=== PATIENT | female | born 1950 | race Caucasian/White ===

== ENCOUNTER 2022-01-24 13:55 | Outpatient (CLI) | payer OTHER, SELFPAY ==
--- NOTE | 2022-01-24 14:30 | MR_ITS ---
[address] [address] Phone:?[phone] Fax:?[phone] Referring Physician Information: Rory Hughes M.D. [address] [place] [address] Phone:?[phone] Fax:?[phone] Patient:?Malu Charles D.O.B:?1950 Sex:?Female Phone:?[phone] [facility] MRN:?[id number] Exam Date:?01/24/2022 ? EXAM: MRI of the RIGHT SHOULDER, without contrast CLINICAL INFORMATION: Female, 71 years old, with right shoulder pain. INDICATION: Evaluate for rotator cuff tear. PRIOR SURGERY: None reported. PLAIN FILMS: None available. COMPARISONS: No prior MRIs available. TECHNICAL INFORMATION: Using a 1.5T MR scanner and a localizing surface coil: coronal obliques: PD, T2FS sagittal obliques: T2, PDFS axials: PD, PDFS SEDATION: None CONTRAST: None FINDINGS: Bones: Proximal humerus: No fracture or marrow edema/pathology. No humeral Hill-Sachs or reverse Hill-Sachs lesion/impaction or contusion. Glenoid: No fracture or marrow edema/pathology. No osseous Bankart lesion. Rotator cuff and muscles/tendons: Supraspinatus: Full width, essentially full-thickness tear of supraspinatus, tendon retraction to the mid humeral head (coronal STIR series 4 image 13). Grade 2 muscle atrophy. Infraspinatus: Mild-moderate infraspinatus tendinopathy with partial-thickness articular surface tearing over an area measuring 2.0 cm mediolateral by 1.7 cm anteroposterior and involving approximately 50% of the tendon thickness (sagittal T2 series 8 image 6 and coronal STIR series 4 image 15). The torn deep fibers are retracted to the mid humeral head. Grade 1 muscle atrophy. Teres minor: No tendinopathy, tear or atrophy. Subscapularis: Mild to moderate tendinopathy of the superior distal subscapularis with partial-thickness articular surface tearing over an area measuring 1.8 x 1.9 cm and involving approximately one third of the tendon thickness (sagittal T2 series 8 image 12 and axial PD series 3 image 16). No full-thickness tear, retraction, or muscle atrophy. Deltoid: No strain or atrophy. Coracoacromial arch: Acromion morphology: The acromion has type II morphology. No discrete subacromial osseous spur or os acromiale. Acromiohumeral space: The acromiohumeral space measures 5.1 mm at its narrowest point (osseous distance). Coracohumeral space: The coracohumeral space is within normal limits. Acromioclavicular joint: Joint: Moderate AC joint arthropathy with approximately 4 mm of inferior osteophytosis, which results in a supraspinatus contour abnormality (sagittal T2 series 8 image 11 and coronal T2 series 6 image 11). Ligaments: Coracoclavicular ligaments are intact. Bursae: Subacromial-subdeltoid: Mild subacromial-subdeltoid bursitis. Subcoracoid: Moderate subcoracoid bursitis. Biceps tendon: Full-thickness avulsion/disruption of the intra-articular biceps long head tendon, which appears retracted approximately 2.5 cm down the humerus (coronal T2 series 6 image 11). Glenohumeral joint: Effusion/cyst: Small glenohumeral joint effusion. Articular cartilage: Humeral head & glenoid: Minimal signal heterogeneity, surface irregularity, and thinning of the articular cartilage without full-thickness chondral loss or reactive osseous changes. Loose bodies: No discrete intra-articular body within the joint. Labrum:?Circumferential degeneration and tearing of the labrum, which is of doubtful clinical significance. Inferior glenohumeral ligament/axillary pouch:?Intact. The axillary pouch is normal in thickness and signal. No evidence of adhesive capsulitis or capsular injury. IMPRESSION: 1. Full-width, essentially full-thickness tear of supraspinatus, with tendon retraction to the mid humeral head and grade 2 muscle atrophy. 2. Mild-moderate and infraspinatus & subscapularis tendinopathy with broad-based low-intermediate grade partial-thickness articular surface tearing. 3. Full-thickness avulsion/disruption of the biceps long head tendon, with tendon retraction approximately 2.5 cm down the humerus. 4. Mild narrowing of the acromiohumeral space with mild subcutaneous, and subdeltoid and moderate subcoracoid bursitis. Additionally, inferior osteophytosis from moderate AC joint arthropathy results in a supraspinatus contour abnormality. 5. Circumferential degeneration and tearing of the labrum, which is of doubtful clinical significance. 6. Small glenohumeral joint effusion. No full-thickness chondral defect or evidence of osteoarthritis. BC Electronically signed on 01/24/2022 10:35:00 PM by Aries Mehta M.D.
== END 2022-01-24 13:56 | disposition home or self-care (01) ==
LOC: MRI 13:57
PROVIDERS: PCP Family Medicine; Visit Provider Orthopaedic Surgery
DX: M25.511 Pain in right shoulder (principal); M75.101 Unspecified rotator cuff tear or rupture of right shoulder, not specified as traumatic; M75.51 Bursitis of right shoulder; S43.431A Superior glenoid labrum lesion of right shoulder, initial encounter; M25.411 Effusion, right shoulder
CPT/HCPCS: 73221

== ENCOUNTER 2022-02-06 06:38 | Day surgery (SDC) | payer OTHER, SELFPAY ==
[2022-02-06] VITALS (8 sets, daily range): BP systolic 145–168; BP diastolic 56–84; PULSE 67–94; RESP 16; TEMP 36.1–36.4; O2SAT 95–99
[2022-02-06] MEDS: BUPIVACAINE 0.5% 30 ML 5 ML INJECTION (07:34)
[2022-02-06] MEDS: lidocaine HCL 2 % MULTIDOSE 20 ML VIAL 5 ML INJECTION (07:34)
--- NOTE | 2022-02-06 08:04 | SUR.PHASEII ---
Pt states she is very anxious after the surgery and did not like being awake. Calming patch, warm blanket applied. Lights turned down.
--- NOTE | 2022-02-07 10:02 | P.ORPRC_ITS ---
Procedure Note Date of procedure: 02/06/22 Procedure: Preop diagnosis: Left upper extremity carpal tunnel syndrome Postop diagnosis: Left upper extremity carpal tunnel syndrome Procedure: Left upper extremity carpal tunnel release Anesthesia: Local Surgeon: Rory Hughes MD automobile mechanic assistant: STEFFANIE Ferrari EBL: 5 mL Complications: None Specimens: None Drains: None Indications: The patient has a history of left upper extremity carpal tunnel syndrome symptoms. Despite appropriate nonoperative management consisting of nighttime bracing and occupational therapy they continue to have symptoms. Operative intervention was recommended. The risks, benefits alternatives and expected outcomes were discussed in detail. These included but were not limited to: Infection, bleeding, injury to blood vessel or nerve, venous thromboembolism. All questions were answered to their satisfaction. The patient was placed supine on the operating room table. Local anesthesia was established with 0.5% Marcaine without epinephrine and 2% lidocaine without epinephrine. The hand was prepped and draped in usual sterile fashion. The limb was elevated the forearm pneumatic tourniquet was inflated to 250 mm of mercury. A longitudinal incision was made centered over the radial border of the ring f gisell at the base of the palm. Subcutaneous dissection was sharply taken through the palmar fascia and the palmaris brevis to the transverse carpal ligament. The ligament was divided in line with the incision. Proximal and distal dissection was carried with tenotomy and Metzenbaum scissors for a wide decompression of the carpal tunnel. The tourniquet was released, bleeding was controlled with direct pressure. The wound was closed with a 3-0 nylon. A bulky dry dressing was applied, sponge and needle counts were correct x 2. The patient tolerated the procedure well, there were no apparent complications. They were sent to same day surgery in satisfactory condition. Plan: Use of the hand as tolerates. Discontinue the intraoperative dressing on postoperative day 3 and may get the wound wet as tolerates. Follow up in the office in 2 weeks for a wound check and suture removal.
== END 2022-02-06 08:50 | disposition home or self-care (01) ==
PROVIDERS: PCP Family Medicine; Visit Provider Orthopaedic Surgery
PROC: (CPT 64721; principal; 2022-02-06 07:30)
DX: G56.02 Carpal tunnel syndrome, left upper limb (principal)
CPT/HCPCS: 64721; J3490

== ENCOUNTER 2022-02-18 06:13 | Day surgery (SDC) | payer OTHER, SELFPAY ==
[2022-02-18] VITALS (19 sets, daily range): BP systolic 90–152; BP diastolic 34–75; PULSE 72–90; RESP 16–20; TEMP 36.5–36.7; O2SAT 92–99; BMI 38.0
[2022-02-18] MEDS: OXYCODONE (CR) 10 MG TAB.ER.12H PO (06:43)
[2022-02-18] MEDS: ACETAMINOPHEN 500 MG TABLET 1000 MG PO (06:43)
[2022-02-18] MEDS: CELECOXIB 200 MG CAPSULE PO (06:43)
[2022-02-18] MEDS: LACTATED RINGERS 1000 ML 1,000 ML 100 ML IV ×2 (07:00→10:07)
[2022-02-18] MEDS: fentaNYL 100 MCG/2 ML inj IVP (07:25)
[2022-02-18] MEDS: MIDAZOLAM HCL 1 MG/ML inj IVP (07:26)
--- NOTE | 2022-02-18 07:28 | SUR.PREOP ---
TIME?OUT:?0720 PT/RN/MDA?VERIFICATION?OF?SURGICAL?SITE,?PROCEDURE,?AND?CONSENT OBTAINED?PRIOR?TO?INVASIVE?PROCEDURE.
--- NOTE | 2022-02-18 07:34 | P.NB_ITS ---
Nerve Block Nerve Block Time Seen by Provider: 07:35 Date Seen: 02/18/22 Type of block requested by surgeon for post-operative analgesia: interscalene Side: right Time out performed: Yes Verification of patient name: Yes Verification of date of : Yes Site marking: site marked Name of person performing procedure: Ezra Assistants, if any: Vidal Continuous monitoring Was continuous monitoring of O2 sat, B/P, marketing support specialist, recorded every 15 minutes?: Yes Procedure Checklist: sterile prep, needles and gloves Ultrasound guided. Images saved: Yes Medications given in 5ml increments after negative aspiration: Ropivicaine %: 0.5 mL: 20 Needle gauge: 22 Decadron (mg): 10 Precedex (mcg): 25 Patient tolerated procedure well: Yes Block Charges Block Charge (with Pro Fee): Brachial Plexus Use of Ultrasound Machine for Block: Yes- US Guidance/pain block
[2022-02-18] MEDS: CEFAZOLIN 2 GM INJ IVP (08:05)
--- NOTE | 2022-02-18 08:06 | W.ANESCHARGE ---
Anesthesia Charges Start Date/Time Anesthesia Start Date: 02/18/22 Anesthesia Start Time: 07:46 Stop Date/Time Anesthesia Stop Date: 02/18/22 Summary Emergency: No Extremes of Age: Over 70-CPT 03180
[2022-02-18] MEDS: SODIUM CHLORIDE IRRIG SOLUTION 3,000 ML, EPINEPHrine 1 MG IRRIGATION (08:33)
--- NOTE | 2022-02-18 09:25 | P.ORPRC_ITS ---
Procedure Note Date of procedure: 02/18/22 Procedure: SURGEON: Rory Hughes MD CREDIT RISK SPECIALIST: STEFFANIE Ferrari PREOPERATIVE DIAGNOSIS: Right shoulder rotator cuff tear, AC joint arthrosis POSTOPERATIVE DIAGNOSIS: Right shoulder rotator cuff tear, AC joint arthrosis NAME OF OPERATION: Right shoulder arthroscopic subacromial decompression, distal clavicle excision, mini open rotator cuff repair ANESTHESIA: Supraclavicular block plus general endotracheal ESTIMATED BLOOD LOSS: 5 mL COMPLICATIONS: None SPECIMENS: None DRAINS: None PREOPERATIVE ANTIBIOTICS: Ancef 2 grams INDICATIONS: The patient is a 71-year-old female with a history of right shoulder pain secondary to the above diagnoses. Despite appropriate non operative management, they continue to have symptoms. Operative intervention was recommended. The risks, benefits and expected outcomes were discussed in detail. These in cluded but were not limited to: Infection, bleeding, injury to blood vessel or nerve, venous thromboembolism. All questions were answered to their satisfaction. PROCEDURE: A supraclavicular block was placed by Anesthesia. General anesthesia was administered. The patient was placed in the high beach chair position. The right shoulder was prepped and draped in the usual sterile fashion. The glenohumeral joint was infiltrated with 20 mL of normal saline with epinephrine. The posterior portal was established, the arthroscope was introduced. The anterior portal was established, Diagnostic arthroscopy was performed with findings as follows: Biceps is torn and retracted out of the glenohumeral joint. The anterior, posterior and superior labrum showed degenerative fraying . Articular surfaces on the humeral head and glenoid showed diffuse grade 3/4 change . There are no loose bodies. There is a full- thickness tear of the supraspinatus and infraspinatus. The arthroscope was placed in the subacromial space, the lateral portal was established. The Arthrex [place] was used to dissect the acromion free. The CA ligament was recessed off the anterior acromion, the AC joint was exposed. The acromioplasty was performed with the bur in the posterior portal. The bur was then placed in the lateral portal and the lateral and anterior aspect of the acromion were resected. The undersurface of the distal clavicle was resected through the lateral portal. Finally, the bur was placed in the anterior portal and the remainder of the distal clavicle was resected for a total of 10 mm. An accessory anterolateral portal was placed. The subacromial/subdeltoid bursa was aggressively debrided. There is a full-thickness tear of the supraspinatus and infraspinatus. A fiber link was placed in the leading edge of rotator cuff, using the scorpion. Arthroscopic instruments were removed. The accessory anterolateral portal was extended proximally and distally, subcutaneous dissection was taken with electrocautery to the deltoid. The deltoid was divided in line with its fibers. The static retractor was placed. The subacromial/subdeltoid bursa was debrided with the Shi scissors. The greater tuberosity was debrided to punctate bleeding bone using the arthroscopic bur. Two Arthrex BioComposite SwiveLock anchors were placed just off the articular surface. Both limbs of the FiberWire and fiber tape were passed using the scorpion. A 2nd fiber link was placed in the leading edge of the rotator cuff. We tied the 2 central FiberWire sutures over the rotator cuff. We then pr oceeded with a lateral row of SwiveLock anchors x 2 crossing the FiberTape and incorporating the FiberWire and fiber link into each lateral row anchor. This provides an anatomic, watertight repair of the rotator cuff. There is no tension on the repair with the shoulder at 0? abduction. The wound was irrigated with normal saline off the pump. The deltoid was repaired with an 0 Vicryl in an interrupted [id number] fashion. Subcutaneous tissues were closed with a 3-0 Vicryl. Skin was closed with a 3-0 Monocryl in a subcuticular fashion. A dry dressing, polar care and sling were applied. Sponge and needle counts were correct x2. The patient tolerated the procedure well. There were no apparent complications. They were carefully transferred to the hospital bed and taken to the posta nesthesia care unit in satisfactory condition. PLAN: The patient will be discharged to home. No active range of motion of the shoulder will be allowed for 6 weeks postoperatively. They can work on active range of motion of the elbow, wrist and fingers. They will follow up in the office next week for a wound check and an AP and transscapular Y-view of the shoulder prior to being seen.
--- NOTE | 2022-02-18 10:48 | W.ANESCHARGE ---
Anesthesia Charges Start Date/Time Anesthesia Start Date: 02/18/22 Anesthesia Start Time: 07:46 Stop Date/Time Anesthesia Stop Date: 02/18/22 Anesthesia Stop Time: 09:48 Summary Emergency: No Extremes of Age: Over 69-CPT [address]60
== END 2022-02-18 12:39 | disposition home or self-care (01) ==
PROVIDERS: PCP Family Medicine; Visit Provider Orthopaedic Surgery
PROC: (CPT 23412; principal; 2022-02-18 07:45)
DX: M75.121 Complete rotator cuff tear or rupture of right shoulder, not specified as traumatic (principal); M19.011 Primary osteoarthritis, right shoulder
CPT/HCPCS: 29826; 29824; 23412; 01630; 64415; 76942; 99100; A9270; C1713; J0171; J0330; J0690; J1100; J2250; J2370; J2405; J2704; J2795; J3010; J7120

== ENCOUNTER 2022-12-19 09:54 | Outpatient (CLI) | payer OTHER, SELFPAY ==
--- NOTE | 2022-12-19 10:15 | CRLHL7_ITS ---
For Patients: As a result of the Century Cures Act, medical imaging exams and procedure reports are released immediately into your electronic medical record. You may view this report before your referring provider. If you have questions, please contact your health care provider. Indication: Pain. Technique: Multiplanar, multisequence MRI of the thoracic spine was performed without the use of intravenous contrast. Comparison: Thoracic spine radiographs 12/04/2022. Findings: There is a chronic superior endplate anterior wedging compression deformity T12. Focal kyphosis at this level. No acute fracture identified. Moderate multilevel disc desiccation. Slight dextroconvex curvature. No abnormal cord signal. T7-8: Disc bulge with superimposed left subarticular disc protrusion resulting in mild spinal canal narrowing. Mild neural foraminal narrowing. T12-L1: Central disc protrusion with mild spinal canal narrowing. Mild left neural foraminal narrowing. L1-2: Degenerative retrolisthesis. Disc protrusion with mild spinal canal narrowing. Mild to moderate neural foraminal narrowing. Milder spondylosis elsewhere throughout the thoracic levels. Impression: 1. 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 2. At T7-8 and T12-L1, mild spinal canal and neural foraminal narrowing. 3. At L1-2, mild spinal canal with mild to moderate neural foraminal narrowing. Dictated by Joel Lua MD @ 12/19/2022 12:30:29 PM (Electronically Signed)
== END 2022-12-19 09:55 | disposition home or self-care (01) ==
LOC: MRI 09:54
PROVIDERS: PCP Family Medicine; Visit Provider Family Medicine
DX: M54.6 Pain in thoracic spine (principal); M51.25 Other intervertebral disc displacement, thoracolumbar region
CPT/HCPCS: 72146

== ENCOUNTER 2024-08-16 08:27 | Inpatient (IN) | payer MEDICARE, OTHER, SELFPAY ==
[2024-08-16] VITALS (21 sets, daily range): BP systolic 95–163; BP diastolic 54–106; PULSE 62–86; RESP 14–18; TEMP 35.9–37.1; O2SAT 91–98; BMI 36.5
[2024-08-16] MEDS: SODIUM CHLORIDE 0.9 % (FLUSH) 10 ML SYRINGE IVF (09:09)
[2024-08-16] MEDS: LACTATED RINGERS 1000 ML 1,000 ML 100 ML IV ×2 (09:09→12:38)
[2024-08-16] MEDS: ACETAMINOPHEN 500 MG TABLET 1000 MG PO ×3 (09:35→21:21)
[2024-08-16] MEDS: OXYCODONE (CR) 10 MG TAB.ER.12H PO (09:35)
[2024-08-16] MEDS: CELECOXIB 200 MG CAPSULE PO (09:35)
[2024-08-16] MEDS: MIDAZOLAM HCL 1 MG/ML inj IVP (09:43)
[2024-08-16] MEDS: fentaNYL 100 MCG/2 ML inj IVP (09:43)
--- NOTE | 2024-08-16 09:49 | SUR.PREOP ---
TIME?OUT:?0940 PT/RN/MDA?VERIFICATION?OF?SURGICAL?SITE,?PROCEDURE,?AND?CONSENT OBTAINED?PRIOR?TO?INVASIVE?PROCEDURE.
[2024-08-16] MEDS: TRANEXAMIC ACID 100 MG/ML INJ 1000 MG IV (10:32)
[2024-08-16] MEDS: CEFAZOLIN 1 GM inj IVP (10:32)
--- NOTE | 2024-08-16 11:39 | P.NB_ITS ---
Nerve Block Nerve Block Time Seen by Provider: 09:45 Date Seen: 08/16/24 Type of block requested by surgeon for post-operative analgesia: geniculars Side: right Time out performed: Yes Verification of patient name: Yes Verification of date of : Yes Site marking: site marked Name of person performing procedure: Ezra Continuous monitoring Was continuous monitoring of O2 sat, B/P, personnel monitor, recorded every 15 minutes?: Yes Procedure Checklist: sterile prep, needles and gloves Ultrasound guided. Images saved: Yes Medications given in 5ml increments after negative aspiration: Marcaine %: 0.25 mL: 9 Needle gauge: 25 Patient tolerated procedure well: Yes Block Charges Block Charge (with Pro Fee): Genicular Nerve Block
--- NOTE | 2024-08-16 11:40 | P.NB_ITS ---
Nerve Block Nerve Block Time Seen by Provider: 09:45 Date Seen: 08/16/24 Type of block requested by surgeon for post-operative analgesia: adductor canal Side: right Time out performed: Yes Verification of patient name: Yes Verification of date of : Yes Site marking: site marked Name of person performing procedure: Ezra Continuous monitoring Was continuous monitoring of O2 sat, B/P, bus driver/monitor, recorded every 15 minutes?: Yes Procedure Checklist: sterile prep, needles and gloves Ultrasound guided. Images saved: Yes Medications given in 5ml increments after negative aspiration: Marcaine %: 0.25 mL: 15 Needle gauge: 20 Precedex (mcg): 25 Patient tolerated procedure well: Yes Block Charges Block Charge (with Pro Fee): Femoral Nerve Use of Ultrasound Machine for Block: Yes- US Guidance/pain block
--- NOTE | 2024-08-16 11:40 | P.ANES_ITS ---
Anesthesia Charges Start Date/Time Anesthesia Start Date: 08/16/24 Anesthesia Start Time: 10:11 Stop Date/Time Anesthesia Stop Date: 08/16/24 Anesthesia Stop Time: 12:33 Summary Extremes of Age - Over 70 or under 1: MDA Coding CPT Codes CPT Codes: ANESTH KNEE ARTHROPLASTY - 57590 ([id number]) P3 - PATIENT W/SEVERE SYS DISEASE, QK - ASSEMBLER GARMENT FORM 2-4 CNCRNT ANES PROC, QX - CREASING AND CUTTING PRESS FEEDER SVC W/ MD MED DIRECTION Additional Codes: Summary - Extremes of Age - Over 70 or under 1: MDA ([id number])
--- NOTE | 2024-08-16 11:40 | W.ANESCHARGE ---
Anesthesia Charges Start Date/Time Anesthesia Start Date: 08/16/24 Anesthesia Start Time: 10:11 Stop Date/Time Anesthesia Stop Date: 08/16/24 Anesthesia Stop Time: 12:33 Summary Extremes of Age - Over 70 or under 1: MDA Coding CPT Codes CPT Codes: ANESTH KNEE ARTHROPLASTY - 64885 ([id number]) P3 - PATIENT W/SEVERE SYS DISEASE, QK - OYSTER GROWER 2-4 CNCRNT ANES PROC, QX - TEACHER OF FAMILY AND CONSUMER SCIENCE SVC W/ MD MED DIRECTION Additional Codes: Summary - Extremes of Age - Over 70 or under 1: MDA ([id number])
--- NOTE | 2024-08-16 12:03 | CRLHL7_ITS ---
For Patients: As a result of the Cures Act, medical imaging exams and procedure reports are released immediately into your electronic medical record. You may view this report before your referring provider. If you have questions, please contact your health care provider. INDICATION: Postop TKA. COMPARISON: 07/11/2024 TECHNIQUE: Two views right knee. FINDINGS: Interval conversion of a right knee medial compartment hemiarthroplasty to an unconstrained total knee arthroplasty. Intact orthopedic hardware. Expected postsurgical intra-articular and periarticular soft tissue gas and subcutaneous edema along the lateral aspect of the proximal leg. IMPRESSION: Postsurgical changes as above. Dictated by Mukesh Wall MD @ 08/17/2024 12:41:48 PM (Electronically Signed)
--- NOTE | 2024-08-16 12:09 | P.ORPRC_ITS ---
Procedure Note Date of procedure: 08/16/24 Procedure: PREOPERATIVE DIAGNOSIS: Right knee lateral and patellofemoral compartment osteoarthritis after medial unicompartmental arthroplasty POSTOPERATIVE DIAGNOSIS: Right knee lateral and patellofemoral compartment osteoarthritis after medial unicompartmental arthroplasty NAME OF OPERATION: Revision Right total knee arthroplasty SURGEON: Rory Hughes MD REPORTER ANCHOR: Debra Long PA-C, Angela Vazquez, MS4 ANESTHESIA: Spinal ESTIMATED BLOOD LOSS: 0 mL COMPLICATIONS: None SPECIMENS: None DRAINS: None PREOPERATIVE ANTIBIOTICS: Ancef 2 grams, antibiotic impregnated cement IMPLANTS: 1. J&J Attune #4 revision CRS posterior stabilized femur, 14 mm x 50 mm cemented stem 2. # 3 revision CRS fixed-bearing tibia, 14 mm x 50 mm cemented stem 3. #4 posterior stabilized, 7 mm fixed-bearing polyethylene 4. 38 patella INDICATIONS: The patient is a 74-year-old with a longstanding history of severe, unrelenting right knee pain secondary to end-stage (grade IV) right knee osteoarthritis. Despite appropriate nonoperative management, including activity modification, anti-inflammatories, [id number] pain medication, bracing, physical therapy, and injections they continue to have pain and disability. Operative intervention was offered. The risks, benefits and expected outcomes were discussed in detail. These included but were not limited to: Infection, bleeding, injury to blood vessel or nerve, venous thromboembolism. All questions were answered to their satisfaction. Use of an account management assistant was necessary throughout the case for patient positioning and safety, soft tissue retraction, and closure. A modifier 22 should be added to this case. The patient weighs 82 kg with a BMI of 36. Additionally, this is a revision case. Therefore, stemmed components were use to reduce the risk of aseptic loosening. This added time and cost to complete the case. PROCEDURE: Spinal anesthesia was administered. The patient was placed supine on the operating table. The account management assistant made sure the patient was positioned appropriately. The lower extremity was prepped and draped in the usual sterile fashion. The limb was exsanguinated with the Brennen bandage. The pneumatic tourniquet was inflated to 300 mmHg. A standard anterior incision was made with the knee in flexion. Subcutaneous dissection was sharply taken through fascial layer #1. Full-thickness medial and lateral flaps were elevated. The account management assistant retracted the soft tissues and protected them throughout the case. A standard subvastus approach was made. The patella was subluxed. The infrapatellar fat pad was preserved. The menisci and cruciate ligaments were sharply d?brided. Marginal osteophytes were d?brided with the rongeur. The ACL graft harvests oscillating saw was used to break up the cement mantle on the femoral component. It was tapped off without difficulty and with no significant bone loss. The drill was used to penetrate the femoral canal. The canal was aspirated and irrigated with pulse lavage. The intramedullary femoral guide was placed for a 5-degree valgus cut, removing 10 mm off the distal femur. The saw was used to make the cut. Whitesides line and the trans epicondylar axis were marked. The femoral sizing guide was pinned onto the distal femur. Three degrees of external rotation nicely parallels the transepicondylar axis. Pins were placed for posterior referencing. The four-in-one cutting guide was pinned onto the distal femur. The anterior, posterior, and chamfer cuts were made. The account management assistant protected the collateral ligaments. The revision trial was placed. The box cuts were made. The drill was used x2. The stemmed, boxed trial was placed and was an excellent fit. Attention was then turned to the proximal tibia. The extramedullary tibial guide was placed for a neutral varus/valgus cut with 5 degrees of posterior slope, removing 4 mm based off the medial tibial component. The account management assistant protected the collateral ligaments and the neurovascular bundle. The saw was used to make the cut. The tibial keel was the only part of the tibial component remaining. A threaded guide pin was placed in it and it was popped out of the cement mantle without difficulty. Trial components were placed. The knee was nicely balanced in both flexion and extension. The trial components were removed. The tray was placed in appropriate rotation, parallel to our tibial cutting pins. It was pinned by the account management assistant and the drill x2 was used. The stemmed tibial trial was placed. The punch was used. The tray was removed. The punch was used again. Attention was then turned to the patella. [place] patellar thickness was 20.5 mm. The lobster claw resection guide was used with the 7.5 mm anna a saw blade was used as an extra anna. The saw was used to make the cut. Drill holes were made by the account management assistant. The trial was placed and was an excellent fit. Cancellous surfaces were irrigated with pulse lavage and thoroughly dried by the account management assistant. We cemented the tibial component, then the femoral component. We impacted the 5 mm polyethylene onto the tibial tray. The knee was brought into full extension. We then cemented the patellar component. Excessive cement was removed. The cement was allowed to harden. The knee was taken through a range of motion and was found to be nicely balanced in both flexion and extension. The patella tracks centrally. The account management assistant did a three minute dilute Betadine solution soak. The account management assistant irrigated the wound with 3 liters of normal saline via pulse lavage. The account management assistant reapproximated the extensor mechanism with #1 Vicryl in an interrupted [id number] fashion. The account management assistant then ran the extensor mechanism with a #1 PDO Stratafix. The account management assistant closed the subcutaneous tissues with a 3-0 Stratafix and the skin with a running 3-0 Stratafix in a subcuticular fashion. Glue was used to seal the skin. The account management assistant placed a dry dressing. Sponge and needle counts were correct x2. The patient tolerated the procedure well. There were no apparent complications. They were carefully transferred to the hospital bed and taken to the postanesthesia care unit in satisfactory condition. PLAN: The patient will be mobilized with physical therapy. Aspirin will be used for DVT prophylaxis. They will be discharged to home once medically appropriate.
--- NOTE | 2024-08-16 12:32 | P.ANES_ITS ---
Anesthesia Charges Start Date/Time Anesthesia Start Date: 08/16/24 Anesthesia Start Time: 10:11 Stop Date/Time Anesthesia Stop Date: 08/16/24 Anesthesia Stop Time: 12:33 Coding CPT Codes CPT Codes: ANESTH KNEE ARTHROPLASTY - 68803 ([id number]) P3 - PATIENT W/SEVERE SYS DISEASE, QK - AS400 PROGRAMMER 2-4 CNCRNT ANES PROC, QX - HEAD CORRECTION OFFICER SVC W/ MD MED DIRECTION
--- NOTE | 2024-08-16 12:32 | W.ANESCHARGE ---
Anesthesia Charges Start Date/Time Anesthesia Start Date: 08/16/24 Anesthesia Start Time: 10:11 Stop Date/Time Anesthesia Stop Date: 08/16/24 Anesthesia Stop Time: 12:33 Coding CPT Codes CPT Codes: ANESTH KNEE ARTHROPLASTY - 90671 ([id number]) P3 - PATIENT W/SEVERE SYS DISEASE, QK - SPIRAL WEAVER 2-4 CNCRNT ANES PROC, QX - RATINGS ANALYST SVC W/ MD MED DIRECTION
[2024-08-16] MEDS: LACTATED RINGERS 1000 ML 1,000 ML 75 ML IV (13:55)
[2024-08-16] MEDS: CEFAZOLIN 2 GM in 0.9 % SODIUM CHLORIDE Mini-bag 100 ML IVPB (16:46)
[2024-08-16] MEDS: HYDROmorphone 0.5 mg/0.5 ml inj IVP (16:51)
--- NOTE | 2024-08-16 17:30 | PM.IMCN1 ---
Date of Consult Patient: Jonh Patient Consult date: 08/16/24 Requesting Physician: Orthopedics Primary Care Provider: Marybel Harman MD Consult Narrative Reason for consult: Medical management of comorbidities Narrative: Malu Charles is a 74 year old female who presented to the hospital today for an elective RTKA. There were no surgical or anesthetic complications noted during procedure. Patient's H&P reviewed, PCP is Dr. Marybel Harman in [place]. Past medical history significant for: moderate , mild persistent asthma (no recent exacerbations or complications), hypothyroidism, essential HTN History of blood clots: No Postoperative plan: Home with , lives in [place]. Review of Systems Status of ROS: Reports: 10 or more systems reviewed and unremarkable except as noted in History and below [facility] Medical History (Updated 08/16/24 @ 18:28 by Sunshine Umana MD) Left carpal tunnel syndrome ?G56.02 - Carpal tunnel syndrome, left upper limb (ICD-10) Thoracic spine pain ?M54.6 - Pain in thoracic spine (ICD-10) Greater trochanteric bursitis of right hip ?M70.61 - Trochanteric bursitis, right hip (ICD-10) Bursitis of left shoulder ?M75.52 - Bursitis of left shoulder (ICD-10) Osteoarthritis of patellofemoral joints of both knees ?M17.0 - Bilateral primary osteoarthritis of knee (ICD-10) Morbid obesity ?E66.01 - Morbid (severe) obesity due to excess calories (ICD-10) Spondylolisthesis, lumbar region ?M43.16 - Spondylolisthesis, lumbar region (ICD-10) Low back pain, unspecified ?M54.50 - Low back pain, unspecified (ICD-10) Closed wedge compression fracture of T12 vertebra ?S22.080A - Wedge compression fracture of T11-T12 vertebra, initial encounter for closed fracture (ICD-10) Has a tremor ?R25.1 - Tremor, unspecified (ICD-10) Aortic valve stenosis ?I35.0 - Nonrheumatic aortic (valve) stenosis (ICD-10) Depression ?F32.A - Depression, unspecified (ICD-10) Arthritis ?M19.90 - Unspecified osteoarthritis, unspecified site (ICD-10) Osteoporosis ?M81.0 - Age-related osteoporosis without current pathological fracture (ICD-10) Irritable bowel syndrome ?K58.9 - Irritable bowel syndrome without diarrhea (ICD-10) High blood pressure ?I10 - Essential (primary) hypertension (ICD-10) Asthma ?J45.909 - Unspecified asthma, uncomplicated (ICD-10) Hypothyroid ?E03.9 - Hypothyroidism, unspecified (ICD-10) Surgical History (Updated 08/16/24 @ 18:13 by Sunshine Umana MD) History of total right knee replacement ?Z96.651 - Presence of right artificial knee joint (ICD-10) History of revision of total knee arthroplasty (08/16/24) ?Z96.659 - Presence of unspecified artificial knee joint (ICD-10) Status post right rotator cuff repair (02/18/22) ?Z98.890 - Other specified postprocedural states (ICD-10) S/P right unicompartmental knee replacement (02/29/08) ?Z96.651 - Presence of right artificial knee joint (ICD-10) S/P left unicompartmental knee replacement (03/20/09) ?Z96.652 - Presence of left artificial knee joint (ICD-10) History of thumb surgery (11/27/20) ?Z98.890 - Other specified postprocedural states (ICD-10) History of hip surgery (03/14/21) ?Z98.890 - Other specified postprocedural states (ICD-10) S/P carpal tunnel release (02/06/22) ?Z98.890 - Other specified postprocedural states (ICD-10) History of repair of right rotator cuff (02/18/22) ?Z98.890 - Other specified postprocedural states (ICD-10) History of tonsillectomy ?Z90.89 - Acquired absence of other organs (ICD-10) H/O right wrist surgery (07/12/13) ?Z98.890 - Other specified postprocedural states (ICD-10) History of hysterectomy ?Z90.710 - Acquired absence of both cervix and uterus (ICD-10) Hx of cholecystectomy ?Z90.49 - Acquired absence of other specified parts of digestive tract (ICD-10) Status post right hip replacement (06/25/21) ?Z96.641 - Presence of right artificial hip joint (ICD-10) Family History Other Aneurysm Heart problem Stroke Social History (Reviewed 12/10/22 @ 13:17 by Yvette Alcaraz ~ [employer], [employer]) What is your current living situation?: I presently have a place to live Problems where you live: no known problems Problems where you live details: NA In the past 12 months, utilities in danger of being shut off: no In past 12 months, lack of transportation kept you from medical appts, meetings, work, or getting things needed for daily living: no In the past 12 mos, have been you worried that your food would run out before you had money to buy more?: never true In the past 12 mos, the food you bought just didn't last and you didn't have money to buy more?: never true Smoking Status: Never smoker Do you use any of these nicotine containing products: None How often do you have a drink containing alcohol: never AUDIT-C Alcohol total score: 0 Non-prescribed substance use: denies use Caffeine: Yes How often does anyone, including family, friends and others, physically hurt you: never How often does anyone, including family, friends and others, insult or talk down to you: never How often does anyone, including family, friends and others, threaten you with harm: never How often does anyone, including family, friends and others, scream or curse at you: never service: No Meds Home Medications and Allergies Home Medications ?Medication ?Instructions ?Recorded ?Confirmed ?Type bupropion HCl 150 mg tablet,12 hr 300 mg PO DAILY 12/20/21 08/16/24 History sustained-release citalopram 20 mg tablet 20 mg PO DAILY 12/20/21 08/16/24 History levothyroxine 112 mcg tablet 112 mcg PO DAILY 12/20/21 08/16/24 History montelukast 10 mg tablet 10 mg PO HS 12/20/21 08/16/24 History estradiol 1 mg tablet 0.5 mg PO DAILY 01/15/22 08/16/24 History gabapentin 300 mg capsule 300 mg PO TID 01/15/22 08/16/24 History lisinopril 10 mg tablet 10 mg PO DAILY 01/15/22 08/16/24 History tizanidine 2 mg tablet 2 mg PO HS 01/15/22 08/16/24 History Allergies Allergy/AdvReac Type Severity Reaction Status Date / Time cat dander Allergy Mild Verified 08/16/24 09:12 No Known Allergies Allergy Unknown Verified 08/16/24 09:12 Exam Narrative: Exam Narrative: GEN: Alert HEENT: EOMIs bilaterally, no scleral icterus CV: RRR, No concerning murmurs R: LCTA bilaterally without concerning wheezing Skin: No concerning skin lesions or rashes on exposed skin Neuro: Nonfocal Psych: Appropriate Const: Vital Signs, click to edit/add: Vital Signs - 24 hr 08/16/24 08:40 08/16/24 09:45 08/16/24 10:00 Temperature 98.0 F Pulse Rate 86 73 68 Pulse Rate [Right Pulse Oximeter] Respiratory Rate 18 14 16 Blood Pressure 160/76 H 163/91 H 103/58 L Blood Pressure [Ri ght Arm] Pulse Oximetry 95 97 98 Oxygen Delivery Me thod Room Air Nasal Cannula Nasal Cannula Oxygen Flow Rate 2 2 08/16/24 12:29 08/16/24 12:35 08/16/24 12:40 Temperature 97.8 F Pulse Rate 73 62 65 Pulse Rate [Right Pulse Oximeter] Respiratory Rate 14 14 14 Blood Pressure 106/54 L 95/73 100/69 Blood Pressure [Ri ght Arm] Pulse Oximetry 98 98 92 Oxygen Delivery Me thod Room Air Room Air Room Air Oxygen Flow Rate 2 08/16/24 12:45 08/16/24 12:50 08/16/24 12:55 Temperature Pulse Rate 63 66 65 Pulse Rate [Right Pulse Oximeter] Respiratory Rate 14 14 14 Blood Pressure 111/58 L 118/70 122/65 Blood Pressure [Ri ght Arm] Pulse Oximetry 93 96 96 Oxygen Delivery Me thod Room Air Room Air Room Air Oxygen Flow Rate 08/16/24 13:00 08/16/24 13:00 08/16/24 13:15 Temperature 96.8 F L 96.8 F L 96.6 F L Pulse Rate 67 67 66 Pulse Rate [Right Pulse Oximeter] Respiratory Rate 14 14 16 Blood Pressure 140/76 H 140/76 H 123/66 Blood Pressure [Ri ght Arm] Pulse Oximetry 94 94 93 Oxygen Delivery Me thod Room Air Room Air Room Air Oxygen Flow Rate 08/16/24 13:30 08/16/24 13:45 08/16/24 14:00 Temperature 96.9 F L 97.2 F L Pulse Rate 74 73 Pulse Rate [Right Pulse Oximeter] Respiratory Rate 16 16 Blood Pressure 124/70 131/69 138/78 Blood Pressure [Ri ght Arm] Pulse Oximetry 91 93 93 Oxygen Delivery Nh thod Room Air Room Air Room Air Oxygen Flow Rate 08/16/24 14:30 08/16/24 15:00 08/16/24 15:00 Temperature 96.7 F L 97.3 F L Pulse Rate 74 Pulse Rate [Right Pulse Oximeter] 79 Respiratory Rate 16 16 16 Blood Pressure 143/106 H Blood Pressure [Ri ght Arm] 133/63 Pulse Oximetry 95 95 93 Oxygen Delivery Nh thod Room Air Room Air Room Air Oxygen Flow Rate 08/16/24 15:00 08/16/24 15:00 08/16/24 16:00 Temperature 97.3 F L Pulse Rate 79 77 Pulse Rate [Right Pulse Oximeter] 75 Respiratory Rate 16 16 Blood Pressure 133/63 127/98 H Blood Pressure [Ri ght Arm] Pulse Oximetry 93 Oxygen Delivery Nh thod Room Air Oxygen Flow Rate 08/16/24 17:07 Temperature 98.6 F Pulse Rate 76 Pulse Rate [Right Pulse Oximeter] Respiratory Rate 16 Blood Pressure 109/67 Blood Pressure [Ri ght Arm] Pulse Oximetry 92 Oxygen Delivery Me thod Room Air Oxygen Flow Rate Assessment and Plan Assessment and plan (1) History of total right knee replacement: Problem comment: - Dr. Hughes, 08/16/24 Status: Acute (2) Asthma: Problem comment: - mild intermittent, stable Status: Acute (3) Aortic valve stenosis: Problem comment: - moderate, asymptomatic - last TTE 2023: Final Impressions: 1. Normal left ventricular size, normal wall thickness, normal global systolic function, calculated EF of 68 %. 2. Right ventricular cavity size is normal, global systolic RV function is normal. 3. The aortic valve is calcified, moderate stenosis and mild regurgitation. 4. The mitral valve is normal, mild mitral regurgitation. 5. Mild-moderate tricuspid regurgitation. 6. Borderline increased estimated pulmonary pressures by tricuspid regurgitation velocity and right atrial pressure (30 mmHg plus RAP). Status: Acute Plan - pain management and prophylaxis per orthopedic surgery team - continue home medications for comorbidities - anticipate routine postoperative course
[2024-08-16] MEDS: OXYCODONE 5 MG TABLET PO ×2 (18:40→23:58)
--- NOTE | 2024-08-16 19:20 | PC.NURSE ---
End of Shift: Patient pleasant and cooperative, A&O. VSS, afebrile. SpO2 maintained above 90% on RA. Patient reports pain in her right knee this shift, managed with PRN medication, see MAR. Dressing to right knee C/D/I. tolerating regular diet. A1 with walker and gait belt to BR.
[2024-08-16] MEDS: GABAPENTIN 300 MG CAPSULE PO (21:20)
[2024-08-16] MEDS: ASPIRIN 81 MG TABLET EC PO (21:20)
[2024-08-16] MEDS: TIZANIDINE HCL 4 MG TABLET 2 MG PO (21:21)
[2024-08-16] MEDS: MONTELUKAST 10 MG TABLET PO (21:21)
[2024-08-17] MEDS: CEFAZOLIN 2 GM in 0.9 % SODIUM CHLORIDE Mini-bag 100 ML IVPB
[2024-08-17 03:15] VITALS: BP 111/50; PULSE 85; RESP 16; TEMP 36.8; O2SAT 95
[2024-08-17] MEDS: ACETAMINOPHEN 500 MG TABLET 1000 MG PO ×2 (03:17→09:42)
[2024-08-17] MEDS: OXYCODONE 5 MG TABLET PO ×3 (06:04→10:38)
[2024-08-17] MEDS: LEVOTHYROXINE 112 MCG TABLET PO (06:05)
--- NOTE | 2024-08-17 06:12 | PC.NURSE ---
Pt is alert and oriented x3. Afebrile. Pt reports 0-5/10 pain in right knee, pain managed with cold pack, PRN and scheduled medications. Pt?s left knee dressing is CDI. Pt is up SBA with walker and gait belt, voiding, and tolerating a regular diet. ?
[2024-08-17 06:15] LABS: Basophils Absolute Auto 0.02 K/uL (0.00-0.30); Basophils Percent Auto 0.3 % (0.0-3.0); Eosinophils Absolute Auto 0.07 K/uL (0.00-0.50); Eosinophils Percent Auto 1.1 % (0.0-7.0); Hematocrit 35.1 % (33.0-51.0); Hemoglobin* 11.5 gm/dL (12.0-16.0); Immature Granulocytes Abs Auto 0.06 K/uL (0.00-0.30); Immature Granulocytes Pct Auto 0.9 %; Lymphocytes Absolute Auto 1.39 K/uL (0.90-2.90); Lymphocytes Percent Auto 21.3 % (20-44); Mean Corpuscular HGB Conc 33 gm/dL (32-36); Mean Corpuscular Hemoglobin 32 pg (26-34); Mean Corpuscular Volume 99 fL (80-100); Monocytes Percent Auto 15.6 % (0.0-11.0); Neutrophils Absolute Auto 3.96 K/uL (1.7-7.0); Neutrophils Percent Auto 60.8 % (42.0-72.0); Platelet Count* 192 K/uL (140-440); RDW Coefficient of Variation % 12.8 % (11.5-15.5); Red Blood Count 3.56 m/uL (4.00-5.20); White Blood Count* 6.52 K/uL (4.50-11.00)
[2024-08-17 06:29] LABS: Potassium* 4.2 mmol/L (3.6-5.1); Sodium* 135 mmol/L (135-149)
[2024-08-17 06:30] LABS: Slide Review Reflex No
[2024-08-17 06:32] LABS: Blood Urea Nitrogen* 13 mg/dL (7-30); Creatinine* 0.8 mg/dL (0.5-1.5); Est. Creatinine Clearance* 62.92; Estimated Glomerular Filt Rate 77 ml/min
[2024-08-17 06:59] LABS: INR 0.92 (0.91-1.10); Prothrombin Time 13.1 Seconds
[2024-08-17 07:15] VITALS: PULSE 79; RESP 16
[2024-08-17 07:20] VITALS: BP 118/56; PULSE 79; RESP 16; TEMP 36.5; O2SAT 92
--- NOTE | 2024-08-17 08:01 | PC.SOCIAL ---
Discharge Planning: SW met with patient who appeared tired. Patient states that she has had some partial replacements done in the past but this is her first full so feels a little apprehensive to how it will go. Patient explains she lives in an old house and has been practicing stairs in anticipation for this. Patient reports that she has her spouse to help, but patient made it seems as though he might not be the best in preparing meals, however, patient states we will figure it out and did not want any support in this area. Patient also states she will have her dogs for emotional support and that they are not dogs that will be in the way with the potential to trip her. Patient reports no needs from SW at this time.
--- NOTE | 2024-08-17 08:04 | PM.ORPN ---
Subjective Subjective Time Seen by Provider: 07:20 Date Seen: 08/17/24 Principal diagnosis: Status post right knee replacement Interval history: Malu did not get much sleep last night. She looks forward to discharging to home today. She is comfortable at rest. Ortho Exam Narrative Exam Narrative: Alert and oriented x3. Patient is in no acute distress. Converses without labored breathing. Hearing is grossly intact. Ambulates with a walker. Examination of the right lower extremity shows dressing is intact. Mild edema. Mild hematoma anteriorly. CMS intact right lower extremity. Calves are soft and nontender. CMS intact right lower extremity. She is able to easily straight leg raise in supine position. No erythema or warmth or sign of infection Const Vital Signs, click to edit/add: Vital Signs - 24 hr 08/16/24 08:40 08/16/24 09:45 08/16/24 10:00 Temperature 98.0 F Pulse Rate 86 73 68 Pulse Rate [Right Pulse Oximeter] Respiratory Rate 18 14 16 Blood Pressure 160/76 H 163/91 H 103/58 L Blood Pressure [Right Arm] Pulse Oximetry 95 97 98 Oxygen Delivery Method Room Air Nasal Cannula Nasal Cannula Oxygen Flow Rate 2 2 08/16/24 12:29 08/16/24 12:35 08/16/24 12:40 Temperature 97.8 F Pulse Rate 73 62 65 Pulse Rate [Right Pulse Oximeter] Respiratory Rate 14 14 14 Blood Pressure 106/54 L 95/73 100/69 Blood Pressure [Right Arm] Pulse Oximetry 98 98 92 Oxygen Delivery Method Room Air Room Air Room Air Oxygen Flow Rate 2 08/16/24 12:45 08/16/24 12:50 08/16/24 12:55 Temperature Pulse Rate 63 66 65 Pulse Rate [Right Pulse Oximeter] Respiratory Rate 14 14 14 Blood Pressure 111/58 L 118/70 122/65 Blood Pressure [Right Arm] Pulse Oximetry 93 96 96 Oxygen Delivery Method Room Air Room Air Room Air Oxygen Flow Rate 08/16/24 13:00 08/16/24 13:00 08/16/24 13:15 Temperature 96.8 F L 96.8 F L 96.6 F L Pulse Rate 67 67 66 Pulse Rate [Right Pulse Oximeter] Respiratory Rate 14 14 16 Blood Pressure 140/76 H 140/76 H 123/66 Blood Pressure [Right Arm] Pulse Oximetry 94 94 93 Oxygen Delivery Method Room Air Room Air Room Air Oxygen Flow Rate 08/16/24 13:30 08/16/24 13:45 08/16/24 14:00 Temperature 96.9 F L 97.2 F L Pulse Rate 74 73 Pulse Rate [Right Pulse Oximeter] Respiratory Rate 16 16 Blood Pressure 124/70 131/69 138/78 Blood Pressure [Right Arm] Pulse Oximetry 91 93 93 Oxygen Delivery Method Room Air Room Air Room Air Oxygen Flow Rate 08/16/24 14:30 08/16/24 15:00 08/16/24 15:00 Temperature 96.7 F L 97.3 F L Pulse Rate 74 Pulse Rate [Right Pulse Oximeter] 79 Respiratory Rate 16 16 16 Blood Pressure 143/106 H Blood Pressure [Right Arm] 133/63 Pulse Oximetry 95 95 93 Oxygen Delivery Method Room Air Room Air Room Air Oxygen Flow Rate 08/16/24 15:00 08/16/24 15:00 08/16/24 16:00 Temperature 97.3 F L Pulse Rate 79 77 Pulse Rate [Right Pulse Oximeter] 75 Respiratory Rate 16 16 Blood Pressure 133/63 127/98 H Blood Pressure [Right Arm] Pulse Oximetry 93 Oxygen Delivery Method Room Air Oxygen Flow Rate 08/16/24 17:07 08/16/24 19:00 08/16/24 23:00 Temperature 98.6 F 98.8 F Pulse Rate 76 80 Pulse Rate [Right Pulse Oximeter] Respiratory Rate 16 18 16 Blood Pressure 109/67 139/68 Blood Pressure [Right Arm] Pulse Oximetry 92 93 91 Oxygen Delivery Method Room Air Room Air Room Air Oxygen Flow Rate 08/16/24 23:54 08/17/24 03:15 Temperature 98.1 F 98.3 F Pulse Rate Pulse Rate [Right Pulse Oximeter] 76 85 Respiratory Rate 16 16 Blood Pressure Blood Pressure [Right Arm] 101/55 L 111/50 L Pulse Oximetry 91 95 Oxygen Delivery Method Room Air Room Air Oxygen Flow Rate Assessment and Plan Assessment and plan (1) History of total right knee replacement: Problem details: - Dr. Hughes, 08/16/24, revised Uni to a total knee Status: Acute Assessment and Plan: Plan for discharge is today to home if they meet discharge criteria. DVT prophylaxis includes aspirin 81 mg twice daily x1 month, Compression stockings as needed for swelling. Frequent ambulation, every hour throughout the day. Remove dressing in 1 week. Observe wound and phone Orthopedics with any questions or concerns Return to clinic in 1 week for a wound check Return to clinic in 6 weeks with surgeon Minimize narcotic use. Wean off and discontinue soon as possible. Activities as tolerated. No strenuous activity. Outpatient physical therapy as scheduled. Ice and elevate the operative extremity. No restriction on ice. Patient is informed that pain will increase once the block wears off and expect more severe pain for 4-5 days before pain improves again. Swelling and bruising will increase over the next week.
[2024-08-17] MEDS: SENNOSIDES 1 TAB TABLET 2 TAB PO (08:31)
[2024-08-17] MEDS: buPROPion HCL SR 150 MG TAB 300 MG PO (08:31)
[2024-08-17] MEDS: ASPIRIN 81 MG TABLET EC PO (08:31)
[2024-08-17] MEDS: GABAPENTIN 300 MG CAPSULE PO (08:31)
[2024-08-17] MEDS: estradioL 1 MG TABLET 0.5 MG PO (08:31)
[2024-08-17] MEDS: CITALOPRAM HYDROBROMIDE 20 MG TABLET PO (08:32)
--- NOTE | 2024-08-17 11:02 | PC.NURSE ---
discharge. : Pt has been very pleasant and cooperative, A&O. x4 knee pain 0-8 and she is getting po pain meds. with relief. she is eating, drinking and voiding with no problems, active ice is on. Dressing to right knee C/D/I. tolerating regular diet. A1 with walker and gait belt to BR. PT and OT worked with her. went over discharge packet with pt and , went over medications, appointment, instructions and education. pt went over and signed personal belongings sheet. she got a pain med befre d/c and SL was d/c intact. she got a w/c ride out with all belongings and paperwork. 2 active ice sent with.
== END 2024-08-17 11:00 | disposition home or self-care (01) | DRG 468 ==
PROVIDERS: Admitting Provider Orthopaedic Surgery; PCP Family Medicine; Visit Provider Orthopaedic Surgery
PROC: 0SWC0JZ Revision of Synthetic Substitute in Right Knee Joint, Open Approach (ICD-10-PCS; CPT 27447; principal; 2024-08-16 10:30)
DX: M17.11 Unilateral primary osteoarthritis, right knee (principal); G89.18 Other acute postprocedural pain; J45.909 Unspecified asthma, uncomplicated; I35.0 Nonrheumatic aortic (valve) stenosis; I10 Essential (primary) hypertension; E03.9 Hypothyroidism, unspecified
CPT/HCPCS: 01402; 36415; 64447; 64454; 73560; 76942; 82565; 84132; 84295; 84520; 85025; 85610; 97110; 97116; 97162; 97165; 97530; 97535; 99100; A9270; C1776; J0665; J0690; J1100; J1171; J2250; J2371; J2405; J2704; J3010; J7120; S0106

== ENCOUNTER 2025-02-20 17:09 | Outpatient (CLI) | payer MEDICARE, OTHER, SELFPAY ==
--- NOTE | 2025-02-20 17:30 | MR_ITS ---
[address] [address] Phone:?[phone] Fax:?[phone] Referring Physician Information: Rory Hughes M.D. [id number] [facility] [address] Phone:?[phone] Fax:?[phone] Patient:?Malu Charles D.O.B:?1950 Sex:?Female Phone:?[phone] [facility] MRN:?[id number] Exam Date:?02/20/2025 EXAM: MRI of the LEFT SHOULDER without contrast CLINICAL: Left shoulder pain. Evaluate for rotator cuff tear. COMPARISONS: X-rays dated 02/15/2025. TECHNICAL: Multiplanar multisequence MRI of the left shoulder was obtained. SEDATION: None. CONTRAST: None. FINDINGS: Rotator cuff: Supraspinatus/Infraspinatus: There is full-thickness tearing of the majority of the distal supraspinatus tendon with tendon retraction of approximately 1.3 cm. There is moderate tendinosis and mild partial interstitial/articular surface tearing of the distal infraspinatus tendon. No significant fatty atrophy of the muscles. Teres minor: No tendinosis, tear or atrophy. Subscapularis: There is mild tendinosis with superimposed partial interstitial tearing involving the insertional fibers of the distal subscapularis tendon on axial series 4 image 17-18. No significant fatty atrophy of the muscle. Bursae: Subacromial-subdeltoid: Mild bursal fluid. Subcoracoid: No significant bursal fluid. Coracoacromial arch: Acromion morphology: Type II. No os acromiale. Acromiohumeral space: Within normal limits. Coracohumeral space: Within normal limits. Biceps tendon, long head: Intra-articular tendon is not well-visualized concerning for high-grade tearing/disruption. Glenohumeral joint: Small volume of glenohumeral joint fluid is present. Articular cartilage: There is high-grade chondral loss involving the anterior extending into the central glenoid with high-grade chondral loss also seen to involve the humeral head. Capsule: No evidence of capsular thickening or injury. Labrum: There is attenuation and tearing throughout the superior labrum. No perilabral cyst identified. Bones: No suspicious marrow signal alteration, fracture or dislocation. Acromioclavicular joint: Mild to moderate degenerative hypertrophic changes involving the AC joint. No AC joint widening. IMPRESSION: 1. Full-thickness tearing of the majority of the distal supraspinatus tendon with tendon retraction of approximately 1.3 cm. 2. Moderate tendinosis and mild partial tearing of the distal infraspinatus tendon. 3. Mild tendinosis with superimposed partial interstitial insertional tearing of the distal subscapularis tendon. 4. Intra-articular long head biceps tendon is not well-visualized concerning for high-grade tearing/disruption. 5. Attenuation and tearing throughout the superior labrum. 6. High-grade chondral loss involving the glenohumeral joint. 7. Mild to moderate degenerative hypertrophic change involving the AC joint. JCZ Electronically signed on 02/21/2025 9:52:00 AM by Bro Pike D.O.
== END 2025-02-20 17:10 | disposition home or self-care (01) ==
PROVIDERS: PCP Family Medicine; Visit Provider Orthopaedic Surgery
DX: M25.512 Pain in left shoulder (principal); M75.102 Unspecified rotator cuff tear or rupture of left shoulder, not specified as traumatic; S46.812A Strain of other muscles, fascia and tendons at shoulder and upper arm level, left arm, initial encounter; S43.432A Superior glenoid labrum lesion of left shoulder, initial encounter; M19.012 Primary osteoarthritis, left shoulder
CPT/HCPCS: 73221